=== PATIENT | male | born 1990 | race Caucasian/White ===

== ENCOUNTER 2018-08-24 08:43 | Emergency (ER) | payer OTHER ==
[2018-08-24 09:01] VITALS: BP 119/69; PULSE 78; TEMP 98.7; BMI 20.5
--- NOTE | 2018-08-24 09:37 | PDOC ---
*Physical Exam - Vital Signs Last Vital Signs Temp Pulse Resp BP Pulse Ox 98.7 F 78 18 119/69 98 08/24/18 08:59 08/24/18 08:59 08/24/18 08:59 08/24/18 08:59 08/24/18 08:59 Medical Decision Making - Medical Decision Making 08/24/18 09:36 Pt seen by Midlevel Provider under my direct supervision Ancillary studies reviewed I agree with plan as outlined by Midlevel Provider *DC/Admit/Observation/Transfer Diagnosis at time of Disposition: Nasal congestion, Common cold - Discharge Dispostion Disposition: HOME Condition at time of disposition: Good - Referrals Referrals: Shahid Velasco MD [Staff Physician] - - Patient Instructions Printed Discharge Instructions: DI for Common Cold, DI for Nasal Congestion Additional Instructions: Discharge Instructions: -You have a common cold, seasonal allergies and nasal congestion -Take 600mg of over the counter Ibuprofen every 6 hours for body aches if needed -Take over the counter claritin or zyrtec for runny nose, cough and other cold/ allergy symptoms -Take over the counter Sudafed for nasal congestion -Follow up with your Primary doctor or Dr. Velasco next week if symptoms continue despite over the counter medications - Post Discharge Activity
--- NOTE | 2018-08-24 09:47 | PDOC ---
History of Present Illness - General Chief Complaint: Cold Symptoms Stated Complaint: FLU SYMPTOMS Time Seen by Provider: 08/24/18 09:20 History Source: Patient Exam Limitations: No Limitations - History of Present Illness Initial Comments: CHIEF COMPLAINT: 28 y/o afebrile male c/o cold symptoms x 2 weeks. HISTORY OF PRESENT ILLNESS: The patient states he's had cold symptoms for 2 weeks. He's admitted to runny nose, stuffy nose, intermittent cough, sore throat and fatigue. He has been taking dayquil and nyquil. Vital signs on arrival are within normal limits. REVIEW OF SYSTEMS: GENERAL/CONSTITUTIONAL: No fever/chills. No weakness. No weight change. HEAD, EYES, EARS, NOSE AND THROAT: No change in vision. No ear pain or discharge. +sore throat. +nasal congestion. +runny nose. +sinus pressure CARDIOVASCULAR: No chest pain or shortness of breath. RESPIRATORY: +dry cough. No wheezing, or hemoptysis. GASTROINTESTINAL: No nausea, vomiting, diarrhea. GENITOURINARY: No dysuria, frequency, or change in urination. MUSCULOSKELETAL: No joint or muscle swelling or pain. No neck or back pain. SKIN: No rash or easy bruising. NEUROLOGIC: No headache, vertigo, loss of consciousness, or loss of sensation. PHYSICAL EXAM: GENERAL: The patient is awake, alert, and fully oriented, in no acute distress. He is very well appearing and ambulatory. HEAD: Normal with no signs of trauma. No pain with palpation of sinuses NECK: No lymphadenopathy. ENT: Pupils equal, round and reactive to light, extraocular movements intact, sclera anicteric, conjunctiva clear. Nasal congestion. Watery eyes. No tonsilar erythema, edema or exudate. Uvula midline. No soft/hard palate deformities. LUNGS: Clear to auscultation bilaterally. Normal excursion. No respiratory distress or use of accessory muscles. CV: RRR, S1/S2, no MRG. Cap refill < 2 sec. ABDOMEN: Soft, non-distended, non-tender even to deep palpation, no hepatomegaly or splenomegaly, no masses. EXTREMITIES: Normal range of motion, no edema. NEUROLOGICAL: Normal speech, normal gait. CN II-XII grossly intact. SKIN: Warm, dry, normal turgor, no rashes or lesions noted. Past History - Past Medical History Allergies/Adverse Reactions: Allergies Allergy/AdvReac Type Severity Reaction Status Date / Time No Known Allergies Allergy Verified 08/24/18 08:58 COPD: No - Immunization History Immunization Up to Date: Yes - Suicide/Smoking/Psychosocial Hx Smoking History: Never smoked Hx Alcohol Use: Yes Drug/Substance Use Hx: No *Physical Exam - Vital Signs Last Vital Signs Temp Pulse Resp BP Pulse Ox 98.7 F 78 18 119/69 98 08/24/18 08:59 08/24/18 08:59 08/24/18 08:59 08/24/18 08:59 08/24/18 08:59 Medical Decision Making - Medical Decision Making A/P: 28 y/o afebrile male with common cold, allergies and nasal congestion. will suggest different over the counter medication regimen, plenty of fluids and PCP follow up. The patient verbalizes understanding of all instructions, has no further questions and is awaiting discharge. *DC/Admit/Observation/Transfer Diagnosis at time of Disposition: Nasal congestion, Common cold - Discharge Dispostion Disposition: HOME Condition at time of disposition: Good - Referrals Referrals: Shahid Velasco MD [Staff Physician] - - Patient Instructions Printed Discharge Instructions: DI for Common Cold, DI for Nasal Congestion Additional Instructions: Discharge Instructions: -You have a common cold, seasonal allergies and nasal congestion -Take 600mg of over the counter Ibuprofen every 6 hours for body aches if needed -Take over the counter claritin or zyrtec for runny nose, cough and other cold/ allergy symptoms -Take over the counter Sudafed for nasal congestion -Follow up with your Primary doctor or Dr. Velasco next week if symptoms continue despite over the counter medications - Post Discharge Activity
== END 2018-08-24 10:10 | disposition home or self-care (01) ==
LOC: JER 08:43
DX: J00 Acute nasopharyngitis [common cold] (principal)
CPT/HCPCS: 99281-25

== ENCOUNTER 2021-10-01 08:09 | Emergency (ER) | payer OTHER ==
[2021-10-01 08:21] VITALS: BP 119/84; PULSE 77; TEMP 98.4; BMI 33.3
[2021-10-02 20:07] LABS: SARS-CoV-2 NAA Detected (Not Detected)
== END 2021-10-01 08:45 | disposition home or self-care (01) ==
LOC: FER 08:09
DX: R05.1 Acute cough (principal); R09.81 Nasal congestion; M79.10 Myalgia, unspecified site
CPT/HCPCS: 99283-25; C9803-CS; U0003; U0005

== ENCOUNTER 2025-01-16 12:43 | Emergency (ER) | payer OTHER ==
[2025-01-16 12:48] VITALS: BP 128/71; PULSE 60; RESP 18; TEMP 98.4; BMI 20.5
== END 2025-01-16 13:55 | disposition home or self-care (01) ==
LOC: JERFT 12:43
DX: L30.9 Dermatitis, unspecified (principal)
CPT/HCPCS: 99283-25